=== PATIENT | female | born 1990 ===

== ENCOUNTER 2019-11-21 12:21 | Emergency (ER) | payer SELFPAY ==
[2019-11-21] MEDS ORDERED: Lidocaine 1% w/Epinephrine 1:100K 20 ML VIAL ONE (13:37)
[2019-11-21] MEDS ORDERED: Adacel (T-DAP) 0.5 ML SYRINGE ONE ×2 (14:39→14:41)
== END 2019-11-21 14:45 | disposition home or self-care (01) ==
LOC: ERS 12:21
DX: L02.213 Cutaneous abscess of chest wall (principal); F17.210 Nicotine dependence, cigarettes, uncomplicated; E11.9 Type 2 diabetes mellitus without complications
CPT/HCPCS: 10060; 90471; 90715